=== PATIENT | female | born 2000 | race Caucasian/White ===

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

== ENCOUNTER 2023-01-07 09:56 | Emergency (ER) | payer OTHER, SELFPAY ==
[2023-01-07 09:58] VITALS: BP 87/68; PULSE 144; RESP 16; TEMP 36.9; O2SAT 100; BMI 20.1
--- NOTE | 2023-01-07 10:02 | NURSING ---
NO OLD EKGS
--- NOTE | 2023-01-07 10:11 | EX.ED.DYSGE1 ---
HPI <ABDIRAHMAN Egan - Last Filed: 01/07/23 13:06> History of Present Illness Chief Complaint: Syncope Narrative Narrative: 22-year-old female presents after syncopal episode this morning. 2 days ago she started not feeling well with subjective fever, chills, nausea and vomiting. Yesterday she had no further vomiting but just generalized malaise. She did not eat or drink much. This morning around 8 AM she had not yet eaten and was in the bathroom felt lightheaded. She fell hit her head on the ground. She is not sure if she passed out but thinks she might of for couple minutes. She was on a school trip and another member found her and she was brought in for evaluation. Patient states she just has some mild nausea and a headache now. No recent upper respiratory symptoms, CP or SOB. PFSH <ABDIRAHMAN Egan - Last Filed: 01/07/23 13:06> PFSH Home Medications ondansetron 4 mg disintegrating tablet 4 mg PO Q8H PRN PRN Nausea #10 tabs 01/07/23 [Rx Last Taken Unknown] Allergy/AdvReac Type Severity Reaction Status Date / Time No Known Allergies Allergy Verified 01/07/23 09:59 Surgical History (Updated 01/07/23 @ 10:30 by Melissa Rhoades) H/O heart surgery Social History Smoking Status: Never smoker ROS <ABDIRAHMAN Egan - Last Filed: 01/07/23 13:06> ROS ED ROS Narrative Constitutional: Negative for fever, chills, malaise. Eyes: Negative for visual change. ENT: Negative for sore throat, ear pain, rhinorrhea. CVS: Negative for palpitations, chest pain. Respiratory: Negative for shortness of breath cough. GI: Abdominal pain, diarrhea, constipation, melena, hematochezia. : Negative for dysuria. Neuro: Negative for headache. Skin: Negative for rash. Musc: Negative for joint pain, swelling, trauma. EXAM <ABDIRAHMAN Egan - Last Filed: 01/07/23 13:06> Physical Exam Narrative Exam Narrative: CONST: Patient sitting in no acute distress. EYES: Normal inspection. PERRLA, EOMI. HEAD: Head normocephalic atraumatic, no raccoon eyes or dias sign, no hemotympanum, no nasal septal hematoma, no CSF otorrhea or rhinorrhea. ENT: Normal inspection, dry mucous membranes. NECK: Normal inspection. No meningismus. RESP: No respiratory distress, CTAB. CVS: Regular rate and rhythm, no murmur, no gallop. ABD: Soft and nontender, no guarding or rebound, nondistended. SKIN: Color normal, no rash, warm, dry, intact. EXTREMITIES: Normal appearance, no pedal edema. NEURO: Oriented x4. PSYCH: Normal affect. Const Vital Signs: 01/07/23 09:58 01/07/23 10:15 01/07/23 10:26 Temperature 98.5 F 103.2 F H Temperature Source Temporal Oral Pulse Rate 144 H 135 H Respiratory Rate 16 16 Respiratory Effort Normal Non-Labored Respiratory Pattern Normal Blood Pressure 87/68 L 109/61 Blood Pressure Mean 74 77 Pulse Ox 100 100 Oxygen Delivery Method Room Air Room Air 01/07/23 11:51 01/07/23 12:57 Temperature 99.6 F H Temperature Source Oral Pulse Rate 119 H Respiratory Rate 22 H 18 Respiratory Effort Respiratory Pattern Blood Pressure 117/60 Blood Pressure Mean 79 Pulse Ox 98 Oxygen Delivery Method Room Air <Dr. Tal Barahona DO - Last Filed: 01/07/23 17:20> Physical Exam Const Vital Signs: 01/07/23 09:58 01/07/23 10:15 01/07/23 10:26 Temperature 98.5 F 103.2 F H Temperature Source Temporal Oral Pulse Rate 144 H 135 H Respiratory Rate 16 16 Respiratory Effort Normal Non-Labored Respiratory Pattern Normal Blood Pressure 87/68 L 109/61 Blood Pressure Mean 74 77 Pulse Ox 100 100 Oxygen Delivery Method Room Air Room Air 01/07/23 11:51 01/07/23 12:57 Temperature 99.6 F H Temperature Source Oral Pulse Rate 119 H Respiratory Rate 22 H 18 Respiratory Effort Respiratory Pattern Blood Pressure 117/60 Blood Pressure Mean 79 Pulse Ox 98 Oxygen Delivery Method Room Air MDM <ABDIRAHMAN Egan - Last Filed: 01/07/23 13:06> [facility] Narrative Medical decision making narrative: History 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 intake. She had a syncopal episode this morning secondary to this. She appears well and nontoxic. Heart rates in the 140s, BP 87/68, otherwise normal. She has dry mucous membranes with an otherwise normal exam. I suspect symptoms are due to orthostasis/dehydration. Labs show white count of 14.0 with normal hemoglobin and platelets. BMP shows findings consistent with dehydration and vomiting?sodium 130, potassium 3.1, creatinine 1.22. Glucose is 129 with normal anion gap. test is negative. Patient was given 2 L IV fluids, Zofran, and oral potassium. She had no vomiting and is tolerating p.o. intake. She did become febrile so was given Tylenol and a COVID/flu test were ordered and are negative. After fluids and medication her vital signs are all improving, she has had no vomiting for over 3 hours in the ED and is tolerating p.o. intake. She was able to ambulate and is comfortable going home. I prescribed Zofran as needed and discussed [id number] analgesia if fever returns. She was discharged in stable condition. Test considered but not ordered: I do not think she needs a CT scan of the head as there are no external signs of injury, no signs of basilar skull fracture, neurologically intact. Interventions / MDM: Differential diagnosis: Orthostatic syncope, vasovagal syncope, electrolyte abnormalities, dehydration Diagnosis considered but do not suspect: Meningitis, no meningismus or focal deficits on exam. My EKG interpretation: Sinus rate of 33, no ST changes. T wave inversion lead III. QTc 422 Imaging independently reviewed and interpreted by myself: N/A External documents reviewed: N/A Test considered but not ordered:N/A ED course: Attending note: Patient seen and evaluated with price checker. I perform my own [id number] evaluation. I agree with the plan of work-up. Nausea vomiting on Sunday decreased p.o. intake. While placing a contact standing, now syncopal episode prodromal nausea and lightheaded symptoms. No chest pains or shortness of breath. Exam no traumatic head injury, neck nontender with no meningismus no focal neurological deficits. Mild dry mucosal membranes, heart was tachycardic and regular. Presentation tachycardia/hypotension. 2 L fluids are ordered labs are checked. EKG sinus tachycardia. Patient will ED develop with fever, Tylenol order, has no meningismus. Added COVID and flu returning negative. Re-evaluation: stable Disposition discussed with patient/family/significant other: Case discussed with consulting clinician: N/A Lab Data Attestation: I reviewed the patient's lab results. Labs: Laboratory Results - last 24 hr 01/07/23 01/07/23 01/07/23 10:30 10:30 10:30 WBC 14.0 H RBC 4.80 Hgb 13.7 Hct 40.9 MCV 85.2 MCH 28.5 MCHC 33.5 RDW Std Deviation 38.5 RDW Coeff of Dione 12.3 Plt Count 148 L MPV 10.8 Immature Gran % (Auto) 1.400 H Neut % (Auto) 90.7 H Lymph % (Auto) 1.8 L Laurens % (Auto) 5.4 Eos % (Auto) 0.3 Baso % (Auto) 0.4 Absolute Neuts (auto) 12.7 H Absolute Lymphs (auto) 0.25 L Nucleated RBC % 0 Differential Comment SCANNED Sodium 130 L Potassium 3.1 L Chloride 103 Carbon Dioxide 21.0 Anion Gap 6 BUN 18 Creatinine 1.22 H Estim Creat Clear Calc 57.94 Est GFR (MDRD) Af Amer 72 Est GFR (MDRD) Non-Af 60 BUN/Creatinine Ratio 14.8 Glucose 129 H Calcium 8.2 L Total Bilirubin 0.60 AST 20 ALT 21 Alkaline Phosphatase 69 Total Protein 6.4 Albumin 3.0 L Globulin 3.4 Albumin/Globulin Ratio 0.9 Serum , Qual NEGATIVE EKG Initial EKG: Attestation: I personally reviewed and interpreted this EKG as follows: Interpretation: No Acute Injury Pattern and Sinus Tachycardia Comments: Sinus tachycardia at 133 bpm, no ectopy <Dr. 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 intake. She had a syncopal episode this morning secondary to this. She appears well and nontoxic. Heart rates in the 140s, BP 87/68, otherwise normal. She has dry mucous membranes with an otherwise normal exam. I suspect symptoms are due to orthostasis/dehydration. Labs show white count of 14.0 with normal hemoglobin and platelets. BMP shows findings consistent with dehydration and vomiting?sodium 130, potassium 3.1, creatinine 1.22. Glucose is 129 with normal anion gap. test is negative. Patient was given 2 L IV fluids, Zofran, and oral potassium. She had no vomiting and is tolerating p.o. intake. She did become febrile so was given Tylenol and a COVID/flu test were ordered and are negative. After fluids and medication her vital signs are all improving, she has had no vomiting for over 3 hours in the ED and is tolerating p.o. intake. She was able to ambulate and is comfortable going home. I prescribed Zofran as needed and discussed [id number] analgesia if fever returns. She was discharged in stable condition. Test considered but not ordered: I do not think she needs a CT scan of the head as there are no external signs of injury, no signs of basilar skull fracture, neurologically intact. Interventions / MDM: Differential diagnosis: Orthostatic syncope, vasovagal syncope, electrolyte abnormalities, dehydration Diagnosis considered but do not suspect: Meningitis, no meningismus or focal deficits on exam. My EKG interpretation: Sinus rate of 33, no ST changes. T wave inversion lead III. QTc 422 Imaging independently reviewed and interpreted by myself: N/A External documents reviewed: N/A Test considered but not ordered:N/A ED course: Attending note: Patient seen and evaluated with price checker. I perform my own [id number] evaluation. I agree with the plan of work-up. Nausea vomiting on Sunday decreased p.o. intake. While placing a contact standing, now syncopal episode prodromal nausea and lightheaded symptoms. No chest pains or shortness of breath. Exam no traumatic head injury, neck nontender with no meningismus no focal neurological deficits. Mild dry mucosal membranes, heart was tachycardic and regular. Presentation tachycardia/hypotension. 2 L fluids are ordered labs are checked. EKG sinus tachycardia. Patient will ED develop with fever, Tylenol order, has no meningismus. Added COVID and flu returning negative. Re-evaluation: stable, tolerating p.o. fluids, ambulating department with no return of symptoms. Disposition discussed with patient/family/significant other: Patient Case discussed with consulting clinician: N/A Lab Data Labs: Laboratory Results - last 24 hr 01/07/23 01/07/23 01/07/23 10:30 10:30 10:30 WBC 14.0 H RBC 4.80 Hgb 13.7 Hct 40.9 MCV 85.2 MCH 28.5 MCHC 33.5 RDW Std Deviation 38.5 RDW Coeff of Dione 12.3 Plt Count 148 L MPV 10.8 Immature Gran % (Auto) 1.400 H Neut % (Auto) 90.7 H Lymph % (Auto) 1.8 L Laurens % (Auto) 5.4 Eos % (Auto) 0.3 Baso % (Auto) 0.4 Absolute Neuts (auto) 12.7 H Absolute Lymphs (auto) 0.25 L Nucleated RBC % 0 Differential Comment SCANNED Sodium 130 L Potassium 3.1 L Chloride 103 Carbon Dioxide 21.0 Anion Gap 6 BUN 18 Creatinine 1.22 H Estim Creat Clear Calc 57.94 Est GFR (MDRD) Af Amer 72 Est GFR (MDRD) Non-Af 60 BUN/Creatinine Ratio 14.8 Glucose 129 H Calcium 8.2 L Total Bilirubin 0.60 AST 20 ALT 21 Alkaline Phosphatase 69 Total Protein 6.4 Albumin 3.0 L Globulin 3.4 Albumin/Globulin Ratio 0.9 Serum , Qual NEGATIVE Discharge Plan Triage Chief Complaint: Syncope ED Midlevel Provider: Cristy Cody ED Provider: Tal Barahona Dx/Rx/DC Orders Clinical Impression: Nausea and vomiting, Acute dehydration, Syncope, Acute hypokalemia, Acute hyponatremia, CHI (closed head injury), Fever, Acute viral syndrome Instructions: ED Dehydration (Adult), ED Vomiting (Adult) Prescriptions: New ondansetron 4 mg tablet,disintegrating 4 mg PO Q8H PRN PRN (Reason: Nausea) Qty: 10 0RF Primary Care Provider: Care Physician,No Primary Referrals: Care Physician,No Primary [Primary Care Provider] - Activity Restrictions/Additional Instructions: Use the nausea/vomiting medicine as needed and take Tylenol every 6 hours for fever or pain. Drink plenty fluids to avoid dehydration. Return to ER if symptoms worsen. Disposition Disposition: Home, Self Care Discharge Date/Time: 01/07/23 13:11
[2023-01-07] MEDS: 0.9% Normal Saline 1,000 ML 1000 ML IV (10:25)
[2023-01-07] MEDS: Ondansetron 4 MG/2 ML Vial IV (10:25)
[2023-01-07 10:26] VITALS: BP 109/61; PULSE 135; RESP 16; TEMP 39.6; O2SAT 100
[2023-01-07 10:39] LABS: Absolute Lymphocyte Count 0.25 X10^3/uL (0.83-4.51); Absolute Neutrophil Count 12.7 X10^3/uL (2.0-7.7); Basophil# 0.05 X10^3/uL; Basophil% 0.4 % (0-1); Eosinophil# 0.04 X10^3/uL; Eosinophils% 0.3 % (0-5); Hematocrit 40.9 % (37-47); Hemoglobin 13.7 g/dL (12.0-15.0); Lymphocyte # 0.25 X10^3/ul (0.83-4.51); Lymphocyte % 1.8 % (19-41); Mean Corp Hgb Conc 33.5 g/dL (32-36); Mean Corpuscular Hgb 28.5 pg (27.0-32.0); Mean Corpuscular Volume 85.2 fL (81-99); Mean Platelet Vol. 10.8 fl (6.2-12.0); Monocyte# 0.75 X10^3/uL; Monocyte% 5.4 % (0-10); NRBC Flagged by Analyzer 0 % (0-5); Neutrophil # 12.69 X10^3/uL (2.7-7.7); Neutrophil % 90.7 % (47-70); POSITIVE DIFFERENTIAL YES; Platelet Count 148 K/mm3 (150-450); RBC Distribution Width CV 12.3 % (11.6-14.6); RBC Distribution Width SD 38.5 fl (35.1-43.9)
[2023-01-07 10:42] LABS: Differential Indicated SCAN CRITERIA MET
[2023-01-07] MEDS: Acetaminophen 325 MG Tablet 650 MG PO (10:46)
[2023-01-07 10:48] LABS: Internal QC Validated? YES +Cl - CLEAR BKGD; Pregnancy, Serum, hCG Quali. NEGATIVE Negative
[2023-01-07 10:55] LABS: ALB/GLOB Ratio 0.9 RATIO (0.9-2.4); AST(SGOT) 20 U/L (15-37); Alanine Aminotransfer ALT/SGPT 21 U/L (13-56); Alkaline Phosphatase 69 U/L (45-117); Anion Gap 6 (5-15); BUN 18 mg/dL (7-18); BUN/Creat Ratio 14.8 RATIO (10-20); Calcium,Total 8.2 mg/dL (8.5-10.1); Chloride 103 mmol/L (98-107); Creatinine, Serum 1.22 mg/dL (0.55-1.02); EST Glomerular Filtration Rate 60 mL/min (>60); Est Glom Filt Rate - Afr Amer 72 mL/min (>60); Estimated Creatinine Clearance 57.94 ml/min; Globulin 3.4 g/dL (2.2-4.2); Glucose 129 mg/dL (74-106); Potassium 3.1 mmol/L (3.5-5.1); Protein, Total 6.4 g/dL (6.4-8.2); Sodium Level 130 mmol/L (136-145)
[2023-01-07] MEDS: 0.9% Normal Saline 1,000 ML 999 ML IV (11:10)
[2023-01-07] MEDS: Potassium Chloride Oral Tablet 20 MEQ 40 MEQ PO (11:11)
[2023-01-07 11:15] LABS: Differential Comment SCANNED
[2023-01-07 11:51] VITALS: BP 117/60; PULSE 119; RESP 22; TEMP 37.6; O2SAT 98
[2023-01-07 12:57] VITALS: RESP 18
== END 2023-01-07 13:11 | disposition home or self-care (01) ==
PROVIDERS: Physician Assistant; Emergency Provider Emergency Medicine; Visit Provider Emergency Medicine
DX: S09.90XA Unspecified injury of head, initial encounter (principal); E87.6 Hypokalemia; E86.0 Dehydration; E87.1 Hypo-osmolality and hyponatremia; R55 Syncope and collapse; W01.0XXA Fall on same level from slipping, tripping and stumbling without subsequent striking against object, initial encounter; R11.2 Nausea with vomiting, unspecified; B34.9 Viral infection, unspecified; Z20.822 Contact with and (suspected) exposure to COVID-19
CPT/HCPCS: 80053; 84703; 85025; 87428; 93005; 96361; 96374; 99283; J7030; A4216; J2405